=== PATIENT | female | born 2000 | race Hispanic/Latino ===

== ENCOUNTER 2018-05-15 22:44 | Emergency (ER) | payer SELFPAY ==
[~2018-05-15] VITALS: Ht 165.1 cm; Wt 63.5 kg
[2018-05-15] MEDS ORDERED: PENICILLIN G BENZATHINE LA 1.2 MU TBX IM STA (22:53)
[2018-05-15 23:25] VITALS: BP 124/70
== END 2018-05-15 23:30 | disposition home or self-care (01) ==
LOC: ER 22:44
DX: R50.9 Fever, unspecified (principal); J02.0 Streptococcal pharyngitis
CPT/HCPCS: 99282; J0561